=== PATIENT | female | born 1940 | race Caucasian/White ===

== ENCOUNTER 2016-08-13 18:50 | Emergency (ER) | payer OTHER ==
[~2016-08-13] VITALS: Ht 152.4 cm; Wt 91.5 kg
[~2016-08-13 18:50] MED LIST: ABILIFY DISCMEL15 MG PO; ABILIFY30 MG PO; ACETAMINOPHEN325 M1 PO; ACETAMINOPHEN500 MG PO; ALBUTEROL SULF8.5 GM IH; ALEVE220 MG PO; ASPIR 8181 M1 PO; ASPIR-LOW81 MG PO; ASPIRIN81 M1 PO; ATORVASTATIN CA20 MG PO; BENADRYL ALLERG25 MG PO; BENADRYL25 MG PO; BETHANECHOL CHL25 MG PO; CARDIZEM CD,CA360 MG PO; CARDIZEM LA360 MG PO; CELEXA10 MG PO; CELEXA20 MG PO; CELEXA40 MG PO; CIPRO250 MG PO; CIPRO500 MG PO; CITRATE OF MAG296 ML PO; COGENTIN0.5 MG PO; COGENTIN1 MG PO; COLACE100 MG PO; COMBIVENT200 INHALA IH; DAILY VALUE1 EACH PO; DILTIAZEM 24HR360 M1 PO; DILTIAZEM 24HR360 MG PO; DIPHEN25 M1 PO; DIPHENHYDRAMINE25 M2 PO; DOCUSATE SODIU100 MG PO; ESCITALOPRAM OX10 MG PO; FLUPHENAZINE HCL1 MG PO; FLUPHENAZINE HCL5 MG PO; GLIPIZIDE ER2.5 M1 PO; GLIPIZIDE ER2.5 MG PO; GLUCOPHAGE XR1000 MG PO; GLUCOPHAGE1000 MG PO; GLUCOTROL XL2.5 MG PO; INVEGA SUS156 MG/1 M IM; KEFLEX500 MG PO; LAMICTAL100 MG PO; LAMICTAL25 MG PO; LAMOTRIGINE100 MG PO; LEVOTHYROXINE88 MCG PO; LEVOXYL88 MCG PO; LEXAPRO20 MG PO; LIPITOR20 MG PO; LISINOPRIL10 MG PO; LISINOPRIL20 MG PO; LO-DOSE ASPIRIN81 M1 PO; LORAZEPAM1 MG PO; LOW DOSE ASPIRI81 M1 PO; METFORMIN HCL1000 M1 PO; METFORMIN HCL1000 MG PO; METOPROLOL TAR100 MG PO; METOPROLOL TART50 MG PO; MOTRIN800 MG PO; NAPROSYN500 MG PO; NASONEX17 GM NS; NOVOLOG PE100 UNITS/ SC; OMEPRAZOLE20 M2 PO; OMEPRAZOLE20 M3 PO; OXYCODONE HCL5 MG PO; PERCOCET 5/31 TABLET PO; PREDNISONE10 MG PO; PREDNISONE20 MG PO; PRILOSEC20 MG PO; PRINIVIL10 MG PO; PROAIR HFA8.5 GM IH; PROLIXIN DEC25 MG/ML IM; PROLIXIN2.5 MG PO; PROMETHAZINE-D120 ML PO; Proventil,Ventolin H IH; QUETIAPINE FUM400 MG PO; SEROQUEL XR300 MG PO; SEROQUEL XR400 MG PO; SEROQUEL100 MG PO; SEROQUEL300 MG PO; SEROQUEL400 MG PO; SEROQUEL50 MG PO; SIMVASTATIN40 MG PO; ST. JOSEPH ASPI81 MG PO; STOOL SOFTENER100 M1 PO; STOOL SOFTENER100 MG PO; SUDAFED PE PRE1 EAC3 PO; SYNTHROID50 MCG PO; SYNTHROID88 MCG PO; TAZTIA XT360 MG PO; THERAGRAN1 TABLET PO; TIAZAC360 MG PO; TRAMADOL HCL50 MG PO; TRAZODONE HCL50 MG PO; TYLENOL REGULA325 MG PO; Tums,OsCal PO; ULTRAM50 MG PO; URECHOLINE25 MG PO; VALACYCLOVIR500 MG PO; VALIUM2 MG PO; VENTOLIN HFA18 GM IH; VICKS BABYRUB S50 GM TP; VITAMIN D1000 INTUN PO; VITAMIN D1000 UNIT PO; VITAMIN D31000 UNI2 PO; VITAMIN D31000 UNIT PO; ZESTRIL,PRINIVI10 MG PO; ZOCOR40 MG PO; [UNRECOGNIZED DRUG - OTHER] PO; predniSONE PO
[2016-08-13 20:07] LABS: EOSINOPHIL (%) 1.3 % (0-5); EOSINOPHIL COUNT 0.1 K/uL (0-0.3); HEMATOCRIT 35.8 % (36.0-46.0); IMMATURE GRANULOCYTE (%) 0.3 % (0.0-0.7); IMMATURE GRANULOCYTE COUNT 0.2 K/uL; LYMPHOCYTE COUNT 2.1 K/uL (1.0-2.8); MCHC 34.1 G/DL (30.0-36.0); MCV 82.3 FL (83-99); MONOCYTE (%) 8.8 % (3-12); MONOCYTE COUNT 0.7 K/uL (0-0.8); NEUTROPHIL (%) 61.9 % (45-76); NEUTROPHIL COUNT 4.7 K/uL (1.8-6.4); PLATELET COUNT 308 K/uL (156-360); RBC DIS.WIDTH-CV 13.7 % (11.8-14.6); RBC DIS.WIDTH-SD 40.1 % (39-53); RED BLOOD COUNT 4.35 M/uL (3.80-5.20); WHITE BLOOD COUNT 7.5 K/uL (4.1-10.2)
[2016-08-13 20:29] LABS: TROP-I INTERPRETATION NEGATIVE; TROPONIN-I < 0.01 ng/mL (0.0-0.30)
[2016-08-13 20:30] LABS: CHLORIDE 89 mEq/L (99-109); POTASSIUM 3.3 mEq/L (3.7-5.4); SODIUM 130 mEq/L (136-147)
[2016-08-13 20:32] LABS: GLUCOSE 101 mg/dL (70-99)
[2016-08-13 20:33] LABS: ANION GAP 10 MEQ/L (2-14)
[2016-08-13 20:34] LABS: TOTAL BILIRUBIN 0.1 mg/dL (0.0-1.0)
[2016-08-13 20:36] LABS: ALKALINE PHOSPHATASE 118 IU/L (3-129); GFR ESTIMATE (CALCULATED) > 59 mL/min/
[2016-08-13 20:37] LABS: UREA NITROGEN (BUN) 8 mg/dL (9-23)
[2016-08-13] MEDS ORDERED: MEDROL DOSEPAK4 MG PO (21:22)
[2016-08-13] MEDS ORDERED: PROVENTIL HFA6.7 GM IH (21:22)
[2016-08-13 23:11] VITALS: BP 153/95
== END 2016-08-13 23:13 | disposition home or self-care (01) ==
LOC: EME 18:50
PROVIDERS: Emergency Medicine
DX: J44.1 Chronic obstructive pulmonary disease with (acute) exacerbation (principal); J20.9 Acute bronchitis, unspecified; E87.6 Hypokalemia; R11.2 Nausea with vomiting, unspecified; R19.7 Diarrhea, unspecified; R00.0 Tachycardia, unspecified; Z77.22 Contact with and (suspected) exposure to environmental tobacco smoke (acute) (chronic); J45.909 Unspecified asthma, uncomplicated; I10 Essential (primary) hypertension; E11.9 Type 2 diabetes mellitus without complications; E03.9 Hypothyroidism, unspecified; Z79.82 Long term (current) use of aspirin; Z87.891 Personal history of nicotine dependence
CPT/HCPCS: 71010; 80053; 83880; 84484; 85025; 93005; 94640; 99281; 99284; J7512

== ENCOUNTER 2016-08-16 14:33 | Inpatient (IN) | payer OTHER ==
[~2016-08-16] VITALS: Ht 160 cm; Wt 89.2 kg
[~2016-08-16 14:33] MED LIST changes: +MEDROL DOSEPAK4 MG PO; +PROVENTIL HFA6.7 GM IH
[2016-08-16 20:41] LABS: EOSINOPHIL (%) 0.4 % (0-5); HEMATOCRIT 36.9 % (36.0-46.0); IMMATURE GRANULOCYTE (%) 0.2 % (0.0-0.7); IMMATURE GRANULOCYTE COUNT 0.2 K/uL; LYMPHOCYTE COUNT 1.8 K/uL (1.0-2.8); MCH 28.5 PG (29.0-34.0); MCHC 33.9 G/DL (30.0-36.0); MCV 84.1 FL (83-99); MEAN PLAT.VOLUME 10.1 uM^3 (9.5-12.4); MONOCYTE (%) 8.3 % (3-12); MONOCYTE COUNT 0.7 K/uL (0-0.8); NEUTROPHIL (%) 69.3 % (45-76); NEUTROPHIL COUNT 5.8 K/uL (1.8-6.4); PLATELET COUNT 347 K/uL (156-360); RBC DIS.WIDTH-CV 13.9 % (11.8-14.6); RBC DIS.WIDTH-SD 41.3 % (39-53); RED BLOOD COUNT 4.39 M/uL (3.80-5.20); WHITE BLOOD COUNT 8.3 K/uL (4.1-10.2)
[2016-08-16 20:53] LABS: CHLORIDE 90 mEq/L (99-109); SODIUM 133 mEq/L (136-147)
[2016-08-16 20:55] LABS: GLUCOSE 143 mg/dL (70-99)
[2016-08-16 20:57] LABS: ANION GAP 9 MEQ/L (2-14)
[2016-08-16 20:58] LABS: TOTAL BILIRUBIN 0.3 mg/dL (0.0-1.0)
[2016-08-16 20:59] LABS: ALKALINE PHOSPHATASE 111 IU/L (3-129); GFR ESTIMATE (CALCULATED) > 59 mL/min/
[2016-08-16 21:00] LABS: UREA NITROGEN (BUN) 9 mg/dL (9-23)
[2016-08-16 21:05] LABS: TROP-I INTERPRETATION NEGATIVE; TROPONIN-I 0.01 ng/mL (0.0-0.30)
[2016-08-16] MEDS ORDERED: LEXAPRO20 MG PO (22:44)
[2016-08-16] MEDS ORDERED: ZESTORETIC 20-1 EAC1 PO (22:45)
[2016-08-16] MEDS ORDERED: VITAMIN D31000 UNI2 PO (22:46)
[2016-08-16] MEDS ORDERED: INVEGA SUS156 MG/1 M IM (22:49)
[2016-08-16] MEDS ORDERED: VICKS VAPORUB O50 GM TP (22:50)
[2016-08-16] MEDS ORDERED: VOLTAREN 1% GE100 GM TP (22:51)
[2016-08-16] MEDS ORDERED: LORAZEPAM0.5 MG PO (22:52)
[2016-08-17 02:20] LABS: ADD MIUA? YES; BILIRUBIN NEGATIVE; BLOOD NEGATIVE; COLOR STRAW ((YELLOW)); GLUCOSE (STRIP) NEGATIVE; KETONES NEGATIVE; LEUKOCYTES SMALL; NITRITE NEGATIVE; PROTEIN (STRIP) NEGATIVE; SPECIFIC GRAVITY 1.006 (1.000-1.030); UROBILINOGEN 0.2 MG/DL (0.2-1.0)
[2016-08-17 02:23] LABS: BACTERIA RARE /HPF; EPITHELIAL CELLS RARE /HPF; MUCUS NONE SEEN /LPF; RED BLOOD CELLS 0-5 /HPF (0-5); UCUL ADDED? NO; WHITE BLOOD CELLS 0-5 /HPF (0-5)
[2016-08-17 03:46] VITALS: BP 176/98
[2016-08-17 05:26] LABS: METH RESISTANT S AUREUS PCR NEGATIVE (NEGATIVE)
[2016-08-17 05:28] LABS: PROBE CHECK PASS; SPECIMEN PROCESSING CONTROL PASS
[2016-08-17 08:59] VITALS: BP 165/102
[2016-08-17 11:33] LABS: POINT-OF-CARE METER ID UU14174216
[2016-08-17 11:45] VITALS: BP 132/88
[2016-08-17 15:03] VITALS: BP 149/77
[2016-08-17 16:40] LABS: POINT-OF-CARE METER ID UU13113698
[2016-08-17 19:10] VITALS: BP 171/79
[2016-08-17 21:02] LABS: POINT-OF-CARE METER ID UU14174216
[2016-08-18 00:20] VITALS: BP 88/53
[2016-08-18 00:33] LABS: POINT-OF-CARE METER ID UU13113698
[2016-08-18 03:43] VITALS: BP 101/51
[2016-08-18 09:00] VITALS: BP 109/57
[2016-08-18 11:22] LABS: POINT-OF-CARE METER ID UU13113698
[2016-08-18 11:48] VITALS: BP 128/59
[2016-08-18 15:48] VITALS: BP 122/56
[2016-08-18 16:09] LABS: POINT-OF-CARE METER ID UU13113698
[2016-08-18 20:37] VITALS: BP 128/60
[2016-08-18 21:49] LABS: POINT-OF-CARE METER ID UU13113698
[2016-08-19] VITALS (7 sets, daily range): BP systolic 91–158; BP diastolic 49–68
[2016-08-19 08:22] LABS: POINT-OF-CARE METER ID UU13113698; POINT-OF-CARE USER ID ENVKC36
[2016-08-19 12:23] LABS: POINT-OF-CARE METER ID UU14174216
[2016-08-20 03:46] VITALS: BP 135/64
[2016-08-20 09:50] VITALS: BP 161/73
== END 2016-08-20 16:23 | disposition home or self-care (01) | DRG 605 ==
LOC: EME → EDBD 14:33 → EME 14:33 → 4EAST 23:52 → EDOF 23:52 → 4EAST 08-17 03:39
PROVIDERS: Emergency Medicine; Internal Medicine
DX: S50.01XA Contusion of right elbow, initial encounter (principal); I10 Essential (primary) hypertension; E66.01 Morbid (severe) obesity due to excess calories; F33.9 Major depressive disorder, recurrent, unspecified; F25.0 Schizoaffective disorder, bipolar type; J44.9 Chronic obstructive pulmonary disease, unspecified; E11.9 Type 2 diabetes mellitus without complications; W01.0XXA Fall on same level from slipping, tripping and stumbling without subsequent striking against object, initial encounter; E03.9 Hypothyroidism, unspecified; F41.9 Anxiety disorder, unspecified; Z68.34 Body mass index [BMI] 34.0-34.9, adult; Z87.891 Personal history of nicotine dependence
CPT/HCPCS: 73080; 73502; 73610; 80053; 81003; 82948; 84484; 85025; 87641; 93005; 94640; 94799; 99202; 99281; 99285; J0360; J1815

== ENCOUNTER 2016-08-27 10:58 | Inpatient (IN) | payer OTHER ==
[~2016-08-27] VITALS: Ht 147.3 cm; Wt 89.1 kg
[~2016-08-27 10:58] MED LIST changes: +LORAZEPAM0.5 MG PO; +VICKS VAPORUB O50 GM TP; +VOLTAREN 1% GE100 GM TP; +ZESTORETIC 20-1 EAC1 PO
[2016-08-27 11:39] LABS: HEMATOCRIT 34.3 % (36.0-46.0); MCH 27.8 PG (29.0-34.0); MCHC 34.4 G/DL (30.0-36.0); MCV 80.9 FL (83-99); PLATELET COUNT 288 K/uL (156-360); RBC DIS.WIDTH-SD 40.2 % (39-53); RED BLOOD COUNT 4.24 M/uL (3.80-5.20); WHITE BLOOD COUNT 7.2 K/uL (4.1-10.2)
[2016-08-27 11:51] LABS: CHLORIDE 88 mEq/L (99-109); POTASSIUM 3.4 mEq/L (3.7-5.4); SODIUM 126 mEq/L (136-147)
[2016-08-27 11:53] LABS: GLUCOSE 105 mg/dL (70-99)
[2016-08-27 11:54] LABS: ANION GAP 10 MEQ/L (2-14)
[2016-08-27 11:57] LABS: GFR ESTIMATE (CALCULATED) > 59 mL/min/
[2016-08-27 11:58] LABS: UREA NITROGEN (BUN) 8 mg/dL (9-23)
[2016-08-27 13:26] LABS: ADD MIUA? NO; BILIRUBIN NEGATIVE; BLOOD NEGATIVE; COLOR STRAW ((YELLOW)); GLUCOSE (STRIP) NEGATIVE; KETONES NEGATIVE; LEUKOCYTES NEGATIVE; NITRITE NEGATIVE; PROTEIN (STRIP) NEGATIVE; SPECIFIC GRAVITY 1.005 (1.000-1.030); UROBILINOGEN 0.2 MG/DL (0.2-1.0)
[2016-08-27] MEDS ORDERED: VITAMIN D31000 UNI2 PO (15:01)
[2016-08-27] MEDS ORDERED: GLIPIZIDE ER2.5 MG PO (15:02)
[2016-08-27] MEDS ORDERED: COLACE100 MG PO (15:02)
[2016-08-27] MEDS ORDERED: VENTOLIN HFA18 GM IH (15:03)
[2016-08-27] MEDS ORDERED: LEVO-T88 MCG PO (15:03)
[2016-08-27] MEDS ORDERED: GLUCOPHAGE1000 MG PO (15:05)
[2016-08-27] MEDS ORDERED: LAMICTAL100 MG PO (15:13)
[2016-08-27] MEDS ORDERED: TYLENOL REGULA325 MG PO (15:14)
[2016-08-27] MEDS ORDERED: BETHANECHOL CHL25 MG PO (15:15)
[2016-08-27] MEDS ORDERED: LEXAPRO20 MG PO (15:17)
[2016-08-27] MEDS ORDERED: ZESTORETIC 20-1 EAC1 PO (15:18)
[2016-08-27] MEDS ORDERED: SEROQUEL100 MG PO (15:19)
[2016-08-27] MEDS ORDERED: INVEGA SUS156 MG/1 M IM (15:20)
[2016-08-27] MEDS ORDERED: DAILY VALUE1 EACH PO (15:24)
[2016-08-27] MEDS ORDERED: VICKS VAPORUB O50 GM TP (15:24)
[2016-08-27] MEDS ORDERED: VOLTAREN 1% GE100 GM TP (15:25)
[2016-08-27] MEDS ORDERED: ATIVAN1 MG PO (15:25)
[2016-08-27] MEDS ORDERED: BLISTEX TP (15:27)
[2016-08-27] MEDS ORDERED: LORAZEPAM0.5 MG PO (15:29)
[2016-08-27] MEDS ORDERED: SEROQUEL400 MG PO (15:31)
[2016-08-28 07:09] LABS: ANION GAP 9 MEQ/L (2-14); CHLORIDE 91 MEQ/L (99-109); GFR ESTIMATE (CALCULATED) > 59 mL/min/; GLUCOSE 130 mg/dL (70-99); POTASSIUM 3.9 MEQ/L (3.7-5.4); SAMPLE HEMOLYSIS CHECK 0; SAMPLE ICTERIC CHECK 0; SAMPLE LIPEMIA CHECK 0; SODIUM 130 MEQ/L (136-147); UREA NITROGEN (BUN) 7 mg/dL (9-23)
[2016-08-28 08:28] VITALS: BP 138/70
[2016-08-28 16:23] VITALS: BP 119/79
[2016-08-29] VITALS (7 sets, daily range): BP systolic 91–143; BP diastolic 50–83
[2016-08-29 10:18] LABS: ANION GAP 12 MEQ/L (2-14); CHLORIDE 89 MEQ/L (99-109); GFR ESTIMATE (CALCULATED) 46 mL/min/; GLUCOSE 123 mg/dL (70-99); POTASSIUM 3.8 MEQ/L (3.7-5.4); SAMPLE HEMOLYSIS CHECK 0; SAMPLE ICTERIC CHECK 0; SAMPLE LIPEMIA CHECK 0; SODIUM 130 MEQ/L (136-147); UREA NITROGEN (BUN) 14 mg/dL (9-23)
[2016-08-29 19:12] LABS: TROP-I INTERPRETATION NEGATIVE; TROPONIN-I < 0.01 ng/mL (0.0-0.30)
[2016-08-29 19:14] LABS: ADD MIUA? YES; BILIRUBIN NEGATIVE; BLOOD NEGATIVE; COLOR YELLOW ((YELLOW)); GLUCOSE (STRIP) NEGATIVE; KETONES 5; LEUKOCYTES TRACE; NITRITE POSITIVE; PROTEIN (STRIP) NEGATIVE; SPECIFIC GRAVITY 1.008 (1.000-1.030); UROBILINOGEN 0.2 MG/DL (0.2-1.0)
[2016-08-29 19:25] LABS: BACTERIA 1+ /HPF; EPITHELIAL CELLS RARE /HPF; HYALINE CASTS 0-5 /LPF; MUCUS TRACE /LPF; RED BLOOD CELLS 0-5 /HPF (0-5); UCUL ADDED? NO; WHITE BLOOD CELLS 20-30 /HPF (0-5); WHITE BLOOD CELLS CLUMP OCC /HPF (0-5)
[2016-08-29 19:35] LABS: ALKALINE PHOSPHATASE 94 IU/L (3-129); ANION GAP 17 MEQ/L (2-14); CHLORIDE 89 MEQ/L (99-109); GFR ESTIMATE (CALCULATED) 42 mL/min/; GLUCOSE 174 mg/dL (70-99); INTER. NORMALIZED RATIO 1.2; MAGNESIUM 1.3 mg/dl (1.3-2.7); POTASSIUM 4.1 MEQ/L (3.7-5.4); SAMPLE HEMOLYSIS CHECK 0; SAMPLE ICTERIC CHECK 0; SAMPLE LIPEMIA CHECK 0; SODIUM 129 MEQ/L (136-147); TOTAL BILIRUBIN 0.4 MG/DL (0.0-1.0); UREA NITROGEN (BUN) 14 mg/dL (9-23)
[2016-08-29 19:48] LABS: EOSINOPHIL (%) 0.6 % (0-5); EOSINOPHIL COUNT 0.1 K/uL (0-0.3); HEMATOCRIT 38.5 % (36.0-46.0); IMMATURE GRANULOCYTE (%) 0.7 % (0.0-0.7); IMMATURE GRANULOCYTE COUNT 0.1 K/uL; LYMPHOCYTE COUNT 3.1 K/uL (1.0-2.8); MCH 27.2 PG (29.0-34.0); MCHC 31.7 G/DL (30.0-36.0); MEAN PLAT.VOLUME 10.1 uM^3 (9.5-12.4); MONOCYTE (%) 5.7 % (3-12); MONOCYTE COUNT 0.8 K/uL (0-0.8); NEUTROPHIL (%) 69.3 % (45-76); NEUTROPHIL COUNT 9.2 K/uL (1.8-6.4); PLATELET COUNT 371 K/uL (156-360); RBC DIS.WIDTH-CV 14.7 % (11.8-14.6); RBC DIS.WIDTH-SD 45.5 % (39-53); RED BLOOD COUNT 4.49 M/uL (3.80-5.20)
[2016-08-29 19:49] LABS: MCV 85.7 FL (83-99); WHITE BLOOD COUNT 13.3 K/uL (4.1-10.2)
[2016-08-29 20:44] LABS: BASE EXCESS 5.7 mEq/L (-3 to +3); BICARBONATE 31.6 mEq/L (22-26); CARBOXY HGB 1.7 % (0-5); COMMENTS - BLOOD GASES C+; DEVICE PB840; FI02 70 %; MECHANICAL RATE 12 resp/min; METHEMOGLOBIN 1.2 % (0-1.5); MODE AC; PCO2 51 mm Hg (35-45); PO2 167 mm Hg (80-100); SITE LB; TOTAL RESP RATE 12 resp/min
[2016-08-29 20:45] LABS: PEEP 5 CM/H20; TIDAL VOLUME 440 ML
[2016-08-29 20:58] LABS: METH RESISTANT S AUREUS PCR NEGATIVE (NEGATIVE)
[2016-08-29 21:04] LABS: PROBE CHECK PASS; SPECIMEN PROCESSING CONTROL PASS
[2016-08-29 22:06] LABS: UR CREATININE CONCENTRATION 99.6 MG/DL
[2016-08-29 22:44] LABS: CREATINE KINASE 466 IU/L (1-294)
[2016-08-30] VITALS (18 sets, daily range): BP systolic 96–170; BP diastolic 44–87
[2016-08-30 00:19] LABS: BASE EXCESS 3.4 mEq/L (-3 to +3); BICARBONATE 29.5 mEq/L (22-26); CARBOXY HGB 1.4 % (0-5); COMMENTS - BLOOD GASES C+; DEVICE PB840; FI02 50 %; MECHANICAL RATE 10 resp/min; METHEMOGLOBIN 1.5 % (0-1.5); MODE SIMV; PCO2 51 mm Hg (35-45); PEEP 5 CM/H20; PO2 106 mm Hg (80-100); SITE LR; TIDAL VOLUME 440 ML; TOTAL RESP RATE 15 resp/min; pH 7.37 (7.35-7.45)
[2016-08-30 00:41] LABS: CREATINE KINASE 432 IU/L (1-294); TOTAL CK 432 IU/L (1-294)
[2016-08-30 00:48] LABS: TROP-I INTERPRETATION NEGATIVE; TROPONIN-I 0.02 ng/mL (0.0-0.30)
[2016-08-30 01:16] LABS: POINT-OF-CARE METER ID UU14162636
[2016-08-30 02:39] LABS: BASE EXCESS 4.8 mEq/L (-3 to +3); BICARBONATE 31.2 mEq/L (22-26); CARBOXY HGB 1.3 % (0-5); METHEMOGLOBIN 1.6 % (0-1.5); PCO2 54 mm Hg (35-45); PO2 86 mm Hg (80-100); pH 7.37 (7.35-7.45)
[2016-08-30 02:40] LABS: COMMENTS - BLOOD GASES C+; DEVICE PB840; FI02 50 %; MODE SPON; PEEP 5 CM/H20; PRES. SUPPORT 10 CM/H2O; SITE LR; TOTAL RESP RATE 11 resp/min
[2016-08-30 06:01] LABS: EOSINOPHIL (%) 0.6 % (0-5); HEMATOCRIT 31.6 % (36.0-46.0); IMMATURE GRANULOCYTE (%) 0.3 % (0.0-0.7); LYMPHOCYTE COUNT 1.3 K/uL (1.0-2.8); MCH 27.9 PG (29.0-34.0); MCHC 32.3 G/DL (30.0-36.0); MCV 86.3 FL (83-99); MEAN PLAT.VOLUME 10.1 uM^3 (9.5-12.4); MONOCYTE COUNT 0.6 K/uL (0-0.8); NEUTROPHIL (%) 72.7 % (45-76); NEUTROPHIL COUNT 5.2 K/uL (1.8-6.4); PLATELET COUNT 270 K/uL (156-360); RBC DIS.WIDTH-CV 14.8 % (11.8-14.6); RBC DIS.WIDTH-SD 46.6 % (39-53); RED BLOOD COUNT 3.66 M/uL (3.80-5.20)
[2016-08-30 06:02] LABS: WHITE BLOOD COUNT 7.1 K/uL (4.1-10.2)
[2016-08-30 06:11] LABS: POINT-OF-CARE METER ID UU13113731
[2016-08-30 06:28] LABS: ANION GAP 9 MEQ/L (2-14); CHLORIDE 95 MEQ/L (99-109); GFR ESTIMATE (CALCULATED) 57 mL/min/; GLUCOSE 109 mg/dL (70-99); MAGNESIUM 1.3 mg/dl (1.3-2.7); POTASSIUM 3.9 MEQ/L (3.7-5.4); SAMPLE HEMOLYSIS CHECK 0; SAMPLE ICTERIC CHECK 0; SAMPLE LIPEMIA CHECK 0; SODIUM 133 MEQ/L (136-147); UREA NITROGEN (BUN) 19 mg/dL (9-23)
[2016-08-30 06:30] LABS: TROP-I INTERPRETATION NEGATIVE; TROPONIN-I 0.01 ng/mL (0.0-0.30)
[2016-08-30 06:48] LABS: CK-MB 3.2 ng/mL (0.0-4.9)
[2016-08-30 08:05] LABS: CREATINE KINASE 303 IU/L (1-294); TOTAL CK 303 IU/L (1-294)
[2016-08-30 11:55] LABS: POINT-OF-CARE METER ID UU13113731
[2016-08-30 12:28] LABS: TOTAL CK 306 IU/L (1-294)
[2016-08-30 12:29] LABS: TROP-I INTERPRETATION NEGATIVE; TROPONIN-I < 0.01 ng/mL (0.0-0.30)
[2016-08-30 12:54] LABS: CK-MB 3.3 ng/mL (0.0-4.9); CREATINE KINASE 306 IU/L (1-294)
[2016-08-30 17:13] LABS: POINT-OF-CARE METER ID UU13113748
[2016-08-30 19:11] LABS: TROP-I INTERPRETATION NEGATIVE; TROPONIN-I < 0.01 ng/mL (0.0-0.30)
[2016-08-30 19:13] LABS: CK-MB 2.6 ng/mL (0.0-4.9)
[2016-08-30 19:31] LABS: CREATINE KINASE 285 IU/L (1-294); TOTAL CK 285 IU/L (1-294)
[2016-08-31 06:12] LABS: EOSINOPHIL (%) 0.5 % (0-5); HEMATOCRIT 32.2 % (36.0-46.0); IMMATURE GRANULOCYTE (%) 0.2 % (0.0-0.7); LYMPHOCYTE COUNT 1.3 K/uL (1.0-2.8); MCH 28.1 PG (29.0-34.0); MCHC 32.3 G/DL (30.0-36.0); MEAN PLAT.VOLUME 9.9 uM^3 (9.5-12.4); MONOCYTE (%) 8.5 % (3-12); MONOCYTE COUNT 0.7 K/uL (0-0.8); NEUTROPHIL (%) 75.2 % (45-76); NEUTROPHIL COUNT 6.6 K/uL (1.8-6.4); PLATELET COUNT 256 K/uL (156-360); RBC DIS.WIDTH-CV 14.9 % (11.8-14.6); RBC DIS.WIDTH-SD 46.9 % (39-53); WHITE BLOOD COUNT 8.8 K/uL (4.1-10.2)
[2016-08-31 06:40] LABS: ANION GAP 7 MEQ/L (2-14); CHLORIDE 94 MEQ/L (99-109); GFR ESTIMATE (CALCULATED) > 59 mL/min/; GLUCOSE 140 mg/dL (70-99); MAGNESIUM 1.2 mg/dl (1.3-2.7); POTASSIUM 3.6 MEQ/L (3.7-5.4); SAMPLE HEMOLYSIS CHECK 0; SAMPLE ICTERIC CHECK 0; SAMPLE LIPEMIA CHECK 0; SODIUM 132 MEQ/L (136-147); UREA NITROGEN (BUN) 9 mg/dL (9-23)
[2016-08-31 07:35] VITALS: BP 200/90
[2016-08-31 09:03] VITALS: BP 144/70
[2016-08-31 15:20] VITALS: BP 186/86
[2016-08-31 23:10] VITALS: BP 177/76
[2016-09-01 06:55] LABS: EOSINOPHIL (%) 0.5 % (0-5); HEMATOCRIT 34.1 % (36.0-46.0); IMMATURE GRANULOCYTE (%) 0.1 % (0.0-0.7); LYMPHOCYTE COUNT 1.5 K/uL (1.0-2.8); MCH 28.2 PG (29.0-34.0); MCHC 32.6 G/DL (30.0-36.0); MCV 86.5 FL (83-99); MEAN PLAT.VOLUME 10.5 uM^3 (9.5-12.4); MONOCYTE (%) 8.2 % (3-12); MONOCYTE COUNT 0.7 K/uL (0-0.8); NEUTROPHIL (%) 73.1 % (45-76); NEUTROPHIL COUNT 6.2 K/uL (1.8-6.4); PLATELET COUNT 284 K/uL (156-360); RBC DIS.WIDTH-CV 14.8 % (11.8-14.6); RED BLOOD COUNT 3.94 M/uL (3.80-5.20); WHITE BLOOD COUNT 8.5 K/uL (4.1-10.2)
[2016-09-01 07:22] VITALS: BP 179/82
[2016-09-01 07:26] LABS: ALKALINE PHOSPHATASE 77 IU/L (3-129); ANION GAP 9 MEQ/L (2-14); CHLORIDE 91 MEQ/L (99-109); GFR ESTIMATE (CALCULATED) > 59 mL/min/; GLUCOSE 139 mg/dL (70-99); POTASSIUM 3.7 MEQ/L (3.7-5.4); SAMPLE HEMOLYSIS CHECK 0; SAMPLE ICTERIC CHECK 0; SAMPLE LIPEMIA CHECK 0; SODIUM 134 MEQ/L (136-147); TOTAL BILIRUBIN 0.5 MG/DL (0.0-1.0); UREA NITROGEN (BUN) 7 mg/dL (9-23)
[2016-09-01 14:41] VITALS: BP 199/94
[2016-09-01 16:28] LABS: POINT-OF-CARE METER ID UU13113725
[2016-09-01 22:25] VITALS: BP 133/66
[2016-09-02 07:27] LABS: EOSINOPHIL (%) 0.4 % (0-5); IMMATURE GRANULOCYTE (%) 0.1 % (0.0-0.7); LYMPHOCYTE COUNT 1.4 K/uL (1.0-2.8); MCH 26.9 PG (29.0-34.0); MCHC 31.4 G/DL (30.0-36.0); MCV 85.6 FL (83-99); MONOCYTE (%) 9.9 % (3-12); MONOCYTE COUNT 0.7 K/uL (0-0.8); NEUTROPHIL (%) 69.2 % (45-76); NEUTROPHIL COUNT 4.7 K/uL (1.8-6.4); PLATELET COUNT 345 K/uL (156-360); RBC DIS.WIDTH-CV 14.6 % (11.8-14.6); RBC DIS.WIDTH-SD 45.8 % (39-53); RED BLOOD COUNT 4.09 M/uL (3.80-5.20); WHITE BLOOD COUNT 6.9 K/uL (4.1-10.2)
[2016-09-02 07:52] LABS: ANION GAP 10 MEQ/L (2-14); CHLORIDE 91 MEQ/L (99-109); GFR ESTIMATE (CALCULATED) > 59 mL/min/; GLUCOSE 136 mg/dL (70-99); POTASSIUM 3.6 MEQ/L (3.7-5.4); SAMPLE HEMOLYSIS CHECK 0; SAMPLE ICTERIC CHECK 0; SAMPLE LIPEMIA CHECK 0; SODIUM 133 MEQ/L (136-147); UREA NITROGEN (BUN) 18 mg/dL (9-23)
[2016-09-02 07:53] LABS: MAGNESIUM 1.2 mg/dl (1.3-2.7)
[2016-09-02 08:34] VITALS: BP 135/87
[2016-09-02 16:10] VITALS: BP 144/81
[2016-09-02 16:22] LABS: POINT-OF-CARE METER ID UU13113725
== END 2016-09-02 16:55 | DRG 640 ==
LOC: EME 10:58 → 4WEST 15:40 → 5EAST 15:40 → 4WEST 08-29 18:46 → 5EAST 08-30 19:29
PROVIDERS: Internal Medicine; Internal Medicine Nephrology; Physician Assistant Medical
DX: E87.1 Hypo-osmolality and hyponatremia (principal); G93.41 Metabolic encephalopathy; J96.00 Acute respiratory failure, unspecified whether with hypoxia or hypercapnia; J44.1 Chronic obstructive pulmonary disease with (acute) exacerbation; F05 Delirium due to known physiological condition; N39.0 Urinary tract infection, site not specified; F25.0 Schizoaffective disorder, bipolar type; I10 Essential (primary) hypertension; T43.505A Adverse effect of unspecified antipsychotics and neuroleptics, initial encounter; T50.2X5A Adverse effect of carbonic-anhydrase inhibitors, benzothiadiazides and other diuretics, initial encounter; T45.3X5A Adverse effect of enzymes, initial encounter; T43.205A Adverse effect of unspecified antidepressants, initial encounter; K57.30 Diverticulosis of large intestine without perforation or abscess without bleeding; D18.03 Hemangioma of intra-abdominal structures; E11.9 Type 2 diabetes mellitus without complications; R55 Syncope and collapse; E03.9 Hypothyroidism, unspecified; Z79.84 Long term (current) use of oral hypoglycemic drugs; F32.9 Major depressive disorder, single episode, unspecified; Z91.14 Patient's other noncompliance with medication regimen; Z87.891 Personal history of nicotine dependence; S50.01XD Contusion of right elbow, subsequent encounter; W18.30XD Fall on same level, unspecified, subsequent encounter; Z68.41 Body mass index [BMI] 40.0-44.9, adult; E66.9 Obesity, unspecified
CPT/HCPCS: 36600; 70450; 71010; 71020; 74176; 80048; 80053; 81003; 82550; 82550 91; 82553; 82570; 82803; 82948; 83605; 83735; 84100; 84156; 84300; 84439; 84443; 84484; 85025; 85027; 85610; 85730; 87040; 87070; 87077; 87086; 87186; 87205; 87641; 92950; 93005; 94002; 94640; 94640 76; 94799; 95819; 99202; 99281; 99285; J0360; J0696; J1650; J1815; J2543; J2704; J3010; J7030; J7050; J7120; S0028

== ENCOUNTER 2016-09-02 15:55 | Inpatient (IN) | payer OTHER ==
[~2016-09-02] VITALS: Ht 147.3 cm; Wt 84.3 kg
[~2016-09-02 15:55] MED LIST changes: +ATIVAN1 MG PO; +BLISTEX TP; +LEVO-T88 MCG PO
[2016-09-02 17:27] VITALS: BP 109/55
[2016-09-03 06:15] LABS: POINT-OF-CARE METER ID UU13113830; POINT-OF-CARE USER ID BHSSMG
[2016-09-03 11:34] VITALS: BP 117/56
[2016-09-03 15:48] VITALS: BP 142/67
[2016-09-04 07:57] VITALS: BP 118/59
[2016-09-04 10:34] LABS: ANION GAP 13 MEQ/L (2-14); CHLORIDE 92 MEQ/L (99-109); GFR ESTIMATE (CALCULATED) > 59 mL/min/; POTASSIUM 3.2 MEQ/L (3.7-5.4); SAMPLE HEMOLYSIS CHECK 0; SAMPLE ICTERIC CHECK 0; SAMPLE LIPEMIA CHECK 0; SODIUM 131 MEQ/L (136-147); UREA NITROGEN (BUN) 21 mg/dL (9-23)
[2016-09-04 10:36] LABS: GLUCOSE 94 mg/dL (70-99)
[2016-09-04 15:55] VITALS: BP 129/64
[2016-09-05 07:52] VITALS: BP 164/71
[2016-09-05 10:38] LABS: ANION GAP 12 MEQ/L (2-14); CHLORIDE 95 MEQ/L (99-109); GFR ESTIMATE (CALCULATED) > 59 mL/min/; GLUCOSE 121 mg/dL (70-99); SAMPLE HEMOLYSIS CHECK 0; SAMPLE ICTERIC CHECK 0; SAMPLE LIPEMIA CHECK 0; SODIUM 133 MEQ/L (136-147); UREA NITROGEN (BUN) 27 mg/dL (9-23)
[2016-09-05 10:40] LABS: POTASSIUM 4.1 MEQ/L (3.7-5.4)
[2016-09-05 15:32] VITALS: BP 134/82
[2016-09-06 08:00] VITALS: BP 152/75
[2016-09-06 09:34] LABS: CHLORIDE 97 mEq/L (99-109); POTASSIUM 4.1 mEq/L (3.7-5.4); SODIUM 135 mEq/L (136-147)
[2016-09-06 09:35] LABS: GLUCOSE 141 mg/dL (70-99)
[2016-09-06 09:37] LABS: ANION GAP 12 MEQ/L (2-14)
[2016-09-06 09:39] LABS: GFR ESTIMATE (CALCULATED) 46 mL/min/
[2016-09-06 09:40] LABS: UREA NITROGEN (BUN) 33 mg/dL (9-23)
[2016-09-06 11:45] VITALS: BP 142/64
[2016-09-06 15:37] VITALS: BP 164/68
[2016-09-07 07:55] VITALS: BP 151/70
[2016-09-07 15:57] VITALS: BP 147/83
[2016-09-08 07:58] VITALS: BP 167/74
== END 2016-09-08 10:42 | disposition home or self-care (01) | DRG 885 ==
LOC: 1WEST 15:55
PROVIDERS: Nurse Practitioner Family; Psychiatry & Neurology Psychiatry
DX: F25.9 Schizoaffective disorder, unspecified (principal); E87.1 Hypo-osmolality and hyponatremia; Z68.41 Body mass index [BMI] 40.0-44.9, adult; R33.9 Retention of urine, unspecified; I10 Essential (primary) hypertension; E11.9 Type 2 diabetes mellitus without complications; E03.9 Hypothyroidism, unspecified; J44.9 Chronic obstructive pulmonary disease, unspecified; E66.9 Obesity, unspecified; Z88.2 Allergy status to sulfonamides
CPT/HCPCS: 80048; 82948; 94640; 94640 76; 94799; 97150 GO; 97166 GO; 99202

== ENCOUNTER 2016-10-16 21:40 | Emergency (ER) | payer OTHER ==
[~2016-10-16] VITALS: Ht 152.4 cm; Wt 85.3 kg
[2016-10-16 23:18] LABS: BASOPHIL COUNT 0.1 K/uL (0-0.1); EOSINOPHIL (%) 1.4 % (0-5); EOSINOPHIL COUNT 0.1 K/uL (0-0.3); HEMATOCRIT 32.6 % (36.0-46.0); IMMATURE GRANULOCYTE (%) 0.6 % (0.0-0.7); IMMATURE GRANULOCYTE COUNT 0.1 K/uL; INSTRUMENT ABS NEUTROPHIL CT 6.4 K/uL; LYMPHOCYTE COUNT 1.7 K/uL (1.0-2.8); MCH 27.5 PG (29.0-34.0); MCHC 33.1 G/DL (30.0-36.0); MEAN PLAT.VOLUME 9.9 uM^3 (9.5-12.4); MONOCYTE (%) 7.6 % (3-12); MONOCYTE COUNT 0.7 K/uL (0-0.8); NEUTROPHIL (%) 70.9 % (45-76); NEUTROPHIL COUNT 6.4 K/uL (1.8-6.4); PLATELET COUNT 329 K/uL (156-360); RBC DIS.WIDTH-CV 12.7 % (11.8-14.6); RBC DIS.WIDTH-SD 38.8 % (39-53); RED BLOOD COUNT 3.93 M/uL (3.80-5.20); WHITE BLOOD COUNT 9.1 K/uL (4.1-10.2)
[2016-10-16 23:31] LABS: CHLORIDE 85 mEq/L (99-109); POTASSIUM 3.1 mEq/L (3.7-5.4); SODIUM 125 mEq/L (136-147)
[2016-10-16 23:33] LABS: GLUCOSE 134 mg/dL (70-99)
[2016-10-16 23:34] LABS: ANION GAP 14 MEQ/L (2-14)
[2016-10-16 23:36] LABS: SERUM ETHYL ALCOHOL < 10 mg/dL
[2016-10-16 23:37] LABS: GFR ESTIMATE (CALCULATED) > 59 mL/min/; UREA NITROGEN (BUN) 11 mg/dL (9-23)
[2016-10-17 00:15] LABS: AMPHETAMINE NEGATIVE (500 ng/mL); BARBITURATES NEGATIVE (200 ng/mL); BENZODIAZEPINES PRESUMPTIVE POSITIVE (150 ng/mL); COCAINE NEGATIVE (150 ng/mL); INTERNAL CONTROLS VALID? YES; METHADONE NEGATIVE (200 ng/mL); METHAMPHETAMINE NEGATIVE (500 ng/mL); OPIATES (MORPHINE) NEGATIVE (100 ng/mL); OXYCODONE NEGATIVE (100 ng/mL); PHENCYCLIDINE NEGATIVE (25 ng/mL); PROPOXYPHENE NEGATIVE (300 ng/mL); THC CANNABINOIDS NEGATIVE (50 ng/mL); TRICYCLIC ANTIDEPRESSANTS PRESUMPTIVE POSITIVE (300 ng/mL)
[2016-10-17 00:16] LABS: ADD MEDTOX COMMENT Y
[2016-10-17] MEDS ORDERED: LORAZEPAM0.5 MG PO (01:01)
[2016-10-17] MEDS ORDERED: LORAZEPAM1 MG PO (01:02)
[2016-10-17 04:00] LABS: BENZODIAZEPINES QUANT VALUE 0 NG/ML
[2016-10-17 04:10] LABS: BENZODIAZEPINES, URINE SCREEN Negative (200 ng/mL)
[2016-10-17 08:05] VITALS: BP 112/68
== END 2016-10-17 08:06 | disposition home or self-care (01) ==
LOC: EME → EDBD 21:40 → EME 10-17 08:06
PROVIDERS: Emergency Medicine
DX: F32.9 Major depressive disorder, single episode, unspecified (principal); R45.851 Suicidal ideations; F25.1 Schizoaffective disorder, depressive type; I10 Essential (primary) hypertension; E03.9 Hypothyroidism, unspecified; E11.9 Type 2 diabetes mellitus without complications; J45.909 Unspecified asthma, uncomplicated; J44.9 Chronic obstructive pulmonary disease, unspecified; Z87.891 Personal history of nicotine dependence
CPT/HCPCS: 80048; 84999; 85025; 99281; 99284; G0480

== ENCOUNTER 2016-10-20 14:11 | Emergency (ER) | payer OTHER ==
[~2016-10-20] VITALS: Ht 152.4 cm; Wt 81.0 kg
[2016-10-20 16:56] LABS: ADD MIUA? YES; BILIRUBIN NEGATIVE; BLOOD NEGATIVE; COLOR YELLOW ((YELLOW)); GLUCOSE (STRIP) NEGATIVE; KETONES NEGATIVE; LEUKOCYTES LARGE; NITRITE POSITIVE; PROTEIN (STRIP) NEGATIVE; SPECIFIC GRAVITY 1.003 (1.000-1.030); UROBILINOGEN 0.2 MG/DL (0.2-1.0)
[2016-10-20 17:10] LABS: EPITHELIAL CELLS RARE /HPF; MUCUS TRACE /LPF; RED BLOOD CELLS 0-5 /HPF (0-5)
[2016-10-20 17:12] LABS: BACTERIA 3+ /HPF; UCUL ADDED? YES
[2016-10-20] MEDS ORDERED: VANTIN100 MG PO (17:13)
[2016-10-20 17:23] VITALS: BP 195/82
== END 2016-10-20 17:23 | disposition home or self-care (01) ==
LOC: EME 14:11
PROVIDERS: Emergency Medicine
DX: N39.0 Urinary tract infection, site not specified (principal); F32.9 Major depressive disorder, single episode, unspecified; F25.1 Schizoaffective disorder, depressive type; F60.7 Dependent personality disorder; I10 Essential (primary) hypertension; E11.9 Type 2 diabetes mellitus without complications; E03.9 Hypothyroidism, unspecified; J44.9 Chronic obstructive pulmonary disease, unspecified; J45.909 Unspecified asthma, uncomplicated; Z87.891 Personal history of nicotine dependence
CPT/HCPCS: 81003; 87077; 87086; 87186; 90839; 99281; 99283

== ENCOUNTER 2016-10-23 13:59 | Emergency (ER) | payer OTHER ==
[~2016-10-23] VITALS: Ht 167.6 cm; Wt 96.4 kg
[~2016-10-23 13:59] MED LIST changes: +VANTIN100 MG PO
[2016-10-23 16:46] LABS: POINT-OF-CARE METER ID UU13113800
[2016-10-23 16:50] LABS: HEMATOCRIT 34.5 % (36.0-46.0); MCH 27.5 PG (29.0-34.0); MCHC 33.3 G/DL (30.0-36.0); MCV 82.5 FL (83-99); MEAN PLAT.VOLUME 9.6 uM^3 (9.5-12.4); PLATELET COUNT 354 K/uL (156-360); RBC DIS.WIDTH-SD 39.5 % (39-53); RED BLOOD COUNT 4.18 M/uL (3.80-5.20); WHITE BLOOD COUNT 7.9 K/uL (4.1-10.2)
[2016-10-23 16:58] LABS: CHLORIDE 88 mEq/L (99-109); POTASSIUM 3.5 mEq/L (3.7-5.4); SODIUM 125 mEq/L (136-147)
[2016-10-23 17:00] LABS: GLUCOSE 114 mg/dL (70-99)
[2016-10-23 17:01] LABS: ANION GAP 10 MEQ/L (2-14)
[2016-10-23 17:02] LABS: TOTAL BILIRUBIN 0.3 mg/dL (0.0-1.0)
[2016-10-23 17:03] LABS: ALKALINE PHOSPHATASE 119 IU/L (3-129)
[2016-10-23 17:04] LABS: GFR ESTIMATE (CALCULATED) > 59 mL/min/
[2016-10-23 17:05] LABS: UREA NITROGEN (BUN) 8 mg/dL (9-23)
[2016-10-23 17:27] LABS: LIPASE 13 U/L (1.0-51.0)
[2016-10-23] MEDS ORDERED: KEFLEX500 MG PO (17:55)
[2016-10-23 18:38] VITALS: BP 203/87
== END 2016-10-23 18:42 | disposition home or self-care (01) ==
LOC: EME 13:59
PROVIDERS: Nurse Practitioner Family
DX: N39.0 Urinary tract infection, site not specified (principal); E87.1 Hypo-osmolality and hyponatremia; B96.20 Unspecified Escherichia coli [E. coli] as the cause of diseases classified elsewhere; E11.9 Type 2 diabetes mellitus without complications; E78.5 Hyperlipidemia, unspecified; I10 Essential (primary) hypertension; Z85.3 Personal history of malignant neoplasm of breast; Z85.038 Personal history of other malignant neoplasm of large intestine; Z88.2 Allergy status to sulfonamides; Z88.8 Allergy status to other drugs, medicaments and biological substances; Z87.891 Personal history of nicotine dependence
CPT/HCPCS: 80053; 81003; 82948; 83690; 85027; 99281; 99285; J7030

== ENCOUNTER 2017-03-13 18:25 | Emergency (ER) | payer OTHER ==
[~2017-03-13] VITALS: Ht 152.4 cm; Wt 85.5 kg
[2017-03-13 20:06] LABS: EOSINOPHIL (%) 0.7 % (0-5); EOSINOPHIL COUNT 0.1 K/uL (0-0.3); HEMATOCRIT 34.8 % (36.0-46.0); IMMATURE GRANULOCYTE (%) 0.4 % (0.0-0.7); INSTRUMENT ABS NEUTROPHIL CT 5.1 K/uL; LYMPHOCYTE COUNT 1.4 K/uL (1.0-2.8); MCH 26.5 PG (29.0-34.0); MCHC 32.2 G/DL (30.0-36.0); MCV 82.5 FL (83-99); MEAN PLAT.VOLUME 10.4 uM^3 (9.5-12.4); MONOCYTE (%) 7.6 % (3-12); MONOCYTE COUNT 0.5 K/uL (0-0.8); NEUTROPHIL (%) 71.7 % (45-76); NEUTROPHIL COUNT 5.1 K/uL (1.8-6.4); PLATELET COUNT 290 K/uL (156-360); RBC DIS.WIDTH-CV 13.6 % (11.8-14.6); RBC DIS.WIDTH-SD 41.1 % (39-53); RED BLOOD COUNT 4.22 M/uL (3.80-5.20); WHITE BLOOD COUNT 7.2 K/uL (4.1-10.2)
[2017-03-13 20:14] LABS: PROTHROMBIN TIME 10.6 SEC (10.2-12.9)
[2017-03-13 20:16] LABS: PTT 27.8 SEC (25-37)
[2017-03-13 20:17] LABS: CHLORIDE 91 mEq/L (99-109); POTASSIUM 3.8 mEq/L (3.7-5.4); SODIUM 130 mEq/L (136-147)
[2017-03-13 20:18] LABS: GLUCOSE 109 mg/dL (70-99)
[2017-03-13 20:20] LABS: ANION GAP 13 MEQ/L (2-14)
[2017-03-13 20:22] LABS: GFR ESTIMATE (CALCULATED) > 59 mL/min/
[2017-03-13 20:23] LABS: UREA NITROGEN (BUN) 9 mg/dL (9-23)
[2017-03-13 20:26] LABS: TROP-I INTERPRETATION NEGATIVE; TROPONIN-I 0.01 ng/mL (0.0-0.30)
[2017-03-13] MEDS ORDERED: VENTOLIN HFA18 GM IH (23:41)
[2017-03-13] MEDS ORDERED: LEXAPRO20 MG PO (23:42)
[2017-03-13 23:48] LABS: TROP-I INTERPRETATION NEGATIVE; TROPONIN-I 0.02 ng/mL (0.0-0.30)
[2017-03-14 00:33] VITALS: BP 168/94
== END 2017-03-14 00:33 | disposition home or self-care (01) ==
LOC: EME 18:25
PROVIDERS: Emergency Medicine
DX: R07.9 Chest pain, unspecified (principal); E11.9 Type 2 diabetes mellitus without complications; E78.5 Hyperlipidemia, unspecified; I10 Essential (primary) hypertension; J44.9 Chronic obstructive pulmonary disease, unspecified; K21.9 Gastro-esophageal reflux disease without esophagitis; Z85.038 Personal history of other malignant neoplasm of large intestine; Z85.3 Personal history of malignant neoplasm of breast; Z87.891 Personal history of nicotine dependence; Z79.84 Long term (current) use of oral hypoglycemic drugs
CPT/HCPCS: 71010; 80048; 84484; 85025; 85610; 85730; 93005; 99281; 99285; J7030

== ENCOUNTER 2017-11-29 09:12 | Inpatient (IN) | payer OTHER ==
[~2017-11-29] VITALS: Ht 152.4 cm; Wt 81.6 kg
[2017-11-29 11:31] LABS: BASOPHIL (%) 0.7 % (0-1); BASOPHIL COUNT 0.1 K/uL (0-0.1); EOSINOPHIL (%) 2.2 % (0-5); EOSINOPHIL COUNT 0.2 K/uL (0-0.3); HEMATOCRIT 32.8 % (36.0-46.0); HEMOGLOBIN 11.2 G/DL (11.9-15.5); IMMATURE GRANULOCYTE (%) 0.4 % (0.0-0.7); LYMPHOCYTE (%) 27.8 % (15-42); LYMPHOCYTE COUNT 1.9 K/uL (1.0-2.8); MCH 27.4 PG (29.0-34.0); MCHC 34.1 G/DL (30.0-36.0); MCV 80.2 FL (83-99); MONOCYTE (%) 7.4 % (3-12); MONOCYTE COUNT 0.5 K/uL (0-0.8); NEUTROPHIL (%) 61.5 % (45-76); NEUTROPHIL COUNT 4.2 K/uL (1.8-6.4); RBC DIS.WIDTH-CV 14.1 % (11.8-14.6); RBC DIS.WIDTH-SD 41.2 % (39-53); RED BLOOD COUNT 4.09 M/uL (3.80-5.20); WHITE BLOOD COUNT 6.9 K/uL (4.1-10.2)
[2017-11-29 12:06] LABS: PLAT.SUFFICIENCY ADEQUATE; PLATELET COUNT 227 K/uL (156-360)
[2017-11-29 13:36] LABS: ALKALINE PHOSPHATASE 53 IU/L (3-129); ALT (GPT) 14 IU/L (3-49); AST (GOT) 21 IU/L (2-34); CHLORIDE 86 MEQ/L (99-109); CREATININE 0.6 MG/DL (0.6-1.3); GFR ESTIMATE (CALCULATED) > 59 mL/min/; GLUCOSE 98 mg/dL (70-99); LIPASE 41 U/L (1.0-51.0); POTASSIUM 4.3 MEQ/L (3.7-5.4); SODIUM 122 MEQ/L (136-147); TOTAL BILIRUBIN 0.4 MG/DL (0.0-1.0); TOTAL PROTEIN 6.8 G/DL (6.4-8.3); UREA NITROGEN (BUN) 12 mg/dL (9-23)
[2017-11-29 13:38] LABS: APPEARANCE SL.HAZY ((CLEAR)); BILIRUBIN NEGATIVE; BLOOD NEGATIVE; COLOR YELLOW ((YELLOW)); GLUCOSE (STRIP) NEGATIVE; KETONES NEGATIVE; LEUKOCYTES SMALL; NITRITE POSITIVE; PROTEIN (STRIP) NEGATIVE; SPECIFIC GRAVITY 1.004 (1.000-1.030); UROBILINOGEN 0.2 MG/DL (0.2-1.0)
[2017-11-29 13:57] LABS: BACTERIA 3+ /HPF; MUCUS NONE SEEN /LPF; RED BLOOD CELLS 0-5 /HPF (0-5); UCUL ADDED? YES
[2017-11-29 13:58] LABS: EPITHELIAL CELLS RARE /HPF
[2017-11-29] MEDS ORDERED: ABILIFY10 MG PO (15:03)
[2017-11-29] MEDS ORDERED: VICKS VAPORUB O50 GM TP (15:04)
[2017-11-29] MEDS ORDERED: CALCIUM + D SO1 EACH PO (15:11)
[2017-11-29] MEDS ORDERED: CLOTRIMAZOLE15 GM TP (15:12)
[2017-11-29] MEDS ORDERED: VOLTAREN 1% GE100 GM TP (15:13)
[2017-11-29] MEDS ORDERED: GLUCOTROL XL2.5 MG PO (15:14)
[2017-11-29] MEDS ORDERED: VENTOLIN HFA18 GM IH (15:16)
[2017-11-29] MEDS ORDERED: SYNTHROID88 MCG PO (15:16)
[2017-11-29] MEDS ORDERED: MULTIVITAMIN1 EAC2 PO (15:17)
[2017-11-29] MEDS ORDERED: GLUCOPHAGE1000 MG PO (15:17)
[2017-11-29] MEDS ORDERED: LAMICTAL100 MG PO (15:19)
[2017-11-29] MEDS ORDERED: ACETAMINOPHEN325 M1 PO (15:20)
[2017-11-29] MEDS ORDERED: PRILOSEC20 MG PO (15:22)
[2017-11-29] MEDS ORDERED: LEXAPRO20 MG PO (15:22)
[2017-11-29] MEDS ORDERED: ZESTORETIC 20-1 EAC2 PO (15:22)
[2017-11-29] MEDS ORDERED: SEROQUEL400 MG PO (15:23)
[2017-11-29] MEDS ORDERED: COLACE100 MG PO (15:24)
[2017-11-29 19:53] VITALS: BP 164/71
[2017-11-29 23:10] VITALS: BP 142/68
[2017-11-30 03:00] VITALS: BP 138/79
[2017-11-30 06:47] LABS: CHLORIDE 89 MEQ/L (99-109); CREATININE 0.6 MG/DL (0.6-1.3); GFR ESTIMATE (CALCULATED) > 59 mL/min/; GLUCOSE 110 mg/dL (70-99); POTASSIUM 3.5 MEQ/L (3.7-5.4); SODIUM 128 MEQ/L (136-147); UREA NITROGEN (BUN) 9 mg/dL (9-23)
[2017-11-30 06:53] VITALS: BP 152/69
[2017-11-30 10:53] VITALS: BP 138/76
[2017-11-30 15:37] VITALS: BP 146/67
[2017-11-30 18:48] VITALS: BP 131/74
[2017-11-30 23:05] VITALS: BP 110/52
[2017-12-01 03:35] VITALS: BP 117/66
[2017-12-01 07:36] VITALS: BP 155/91
[2017-12-01 15:47] LABS: CHLORIDE 91 MEQ/L (99-109); CREATININE 0.7 MG/DL (0.6-1.3); GFR ESTIMATE (CALCULATED) > 59 mL/min/; GLUCOSE 127 mg/dL (70-99); POTASSIUM 3.8 MEQ/L (3.7-5.4); SODIUM 129 MEQ/L (136-147); UREA NITROGEN (BUN) 10 mg/dL (9-23)
[2017-12-01 15:53] VITALS: BP 158/90
[2017-12-01 23:35] VITALS: BP 112/57
[2017-12-02 06:23] LABS: CHLORIDE 89 MEQ/L (99-109); GFR ESTIMATE (CALCULATED) 57 mL/min/; GLUCOSE 126 mg/dL (70-99); POTASSIUM 4.4 MEQ/L (3.7-5.4); SODIUM 128 MEQ/L (136-147); UREA NITROGEN (BUN) 14 mg/dL (9-23)
[2017-12-02 07:23] VITALS: BP 167/77
[2017-12-02 15:46] VITALS: BP 150/74
[2017-12-02 23:28] VITALS: BP 113/63
[2017-12-03 07:08] LABS: CHLORIDE 89 MEQ/L (99-109); CREATININE 1.3 MG/DL (0.6-1.3); GFR ESTIMATE (CALCULATED) 42 mL/min/; GLUCOSE 105 mg/dL (70-99); POTASSIUM 4.1 MEQ/L (3.7-5.4); SODIUM 126 MEQ/L (136-147); UREA NITROGEN (BUN) 20 mg/dL (9-23)
[2017-12-03 08:40] VITALS: BP 144/63
[2017-12-03 11:11] LABS: THYROTROPIN (TSH) 1.1 MIU/L (0.4-5.5)
[2017-12-03 16:17] VITALS: BP 130/68
[2017-12-04 00:15] VITALS: BP 138/78
[2017-12-04 06:09] LABS: BASOPHIL (%) 0.3 % (0-1); EOSINOPHIL (%) 0.4 % (0-5); HEMATOCRIT 32.9 % (36.0-46.0); HEMOGLOBIN 10.7 G/DL (11.9-15.5); IMMATURE GRANULOCYTE (%) 0.3 % (0.0-0.7); LYMPHOCYTE (%) 22.1 % (15-42); LYMPHOCYTE COUNT 1.5 K/uL (1.0-2.8); MCHC 32.5 G/DL (30.0-36.0); MCV 82.9 FL (83-99); MONOCYTE (%) 6.8 % (3-12); MONOCYTE COUNT 0.5 K/uL (0-0.8); NEUTROPHIL (%) 70.1 % (45-76); NEUTROPHIL COUNT 4.8 K/uL (1.8-6.4); RBC DIS.WIDTH-CV 14.7 % (11.8-14.6); RBC DIS.WIDTH-SD 44.6 % (39-53); RED BLOOD COUNT 3.97 M/uL (3.80-5.20); WHITE BLOOD COUNT 6.8 K/uL (4.1-10.2)
[2017-12-04 06:21] LABS: PLATELET COUNT 503 K/uL (156-360)
[2017-12-04 06:46] LABS: ALBUMIN 3.8 G/DL (3.2-4.8); ALKALINE PHOSPHATASE 51 IU/L (3-129); ALT (GPT) 22 IU/L (3-49); AST (GOT) 31 IU/L (2-34); CHLORIDE 92 MEQ/L (99-109); CREATININE 0.7 MG/DL (0.6-1.3); GFR ESTIMATE (CALCULATED) > 59 mL/min/; GLUCOSE 113 mg/dL (70-99); MAGNESIUM 1.2 mg/dl (1.3-2.7); POTASSIUM 3.8 MEQ/L (3.7-5.4); SODIUM 130 MEQ/L (136-147); TOTAL BILIRUBIN 0.5 MG/DL (0.0-1.0); TOTAL PROTEIN 6.6 G/DL (6.4-8.3); UREA NITROGEN (BUN) 14 mg/dL (9-23)
[2017-12-04 08:01] VITALS: BP 158/70
[2017-12-04 12:24] LABS: HEPATITIS C ANTIBODY Nonreactive
[2017-12-04 16:26] VITALS: BP 183/80
== END 2017-12-05 09:45 | DRG 644 ==
LOC: EME 09:12 → 2EAST 16:23 → EDOF 16:23 → ENRESERV 16:43 → 2EAST 19:08
PROVIDERS: Emergency Medicine; Internal Medicine; Internal Medicine Nephrology
DX: E22.2 Syndrome of inappropriate secretion of antidiuretic hormone (principal); R45.851 Suicidal ideations; N17.8 Other acute kidney failure; F25.9 Schizoaffective disorder, unspecified; E03.9 Hypothyroidism, unspecified; E66.9 Obesity, unspecified; R45.850 Homicidal ideations; E83.42 Hypomagnesemia; I11.9 Hypertensive heart disease without heart failure; K21.9 Gastro-esophageal reflux disease without esophagitis; K59.00 Constipation, unspecified; N14.2 Nephropathy induced by unspecified drug, medicament or biological substance; N32.81 Overactive bladder; J44.9 Chronic obstructive pulmonary disease, unspecified; B96.20 Unspecified Escherichia coli [E. coli] as the cause of diseases classified elsewhere; N14.1 Nephropathy induced by other drugs, medicaments and biological substances; T50.8X5A Adverse effect of diagnostic agents, initial encounter; Y92.230 Patient room in hospital as the place of occurrence of the external cause; N32.89 Other specified disorders of bladder; T46.4X5A Adverse effect of angiotensin-converting-enzyme inhibitors, initial encounter; T50.2X5A Adverse effect of carbonic-anhydrase inhibitors, benzothiadiazides and other diuretics, initial encounter; T43.225A Adverse effect of selective serotonin reuptake inhibitors, initial encounter; R45.1 Restlessness and agitation; Z16.12 Extended spectrum beta lactamase (ESBL) resistance; Z68.35 Body mass index [BMI] 35.0-35.9, adult; Z78.1 Physical restraint status; Z87.891 Personal history of nicotine dependence; Z79.84 Long term (current) use of oral hypoglycemic drugs; Z91.14 Patient's other noncompliance with medication regimen; Z88.5 Allergy status to narcotic agent; Z88.2 Allergy status to sulfonamides; Z82.49 Family history of ischemic heart disease and other diseases of the circulatory system; Z80.3 Family history of malignant neoplasm of breast; Z80.0 Family history of malignant neoplasm of digestive organs
CPT/HCPCS: 74177; 80048; 80048 91; 80053; 81003; 82533 91; 82948; 83605; 83690; 83735; 83935; 84300; 84439; 84443; 84550; 85025; 86803; 87040; 87077; 87086; 87186; 93005; 99202; 99281; 99285; J0696; J1630; J1644; J2060; J2405; J3486; J7030

== ENCOUNTER 2017-12-05 09:29 | Inpatient (IN) | payer OTHER ==
[~2017-12-05 09:29] MED LIST changes: +ABILIFY10 MG PO; +CALCIUM + D SO1 EACH PO; +CLOTRIMAZOLE15 GM TP; +MULTIVITAMIN1 EAC2 PO; +ZESTORETIC 20-1 EAC2 PO
[2017-12-05 15:13] VITALS: BP 117/72
[2017-12-06 07:38] VITALS: BP 128/72
[2017-12-06 09:49] LABS: CHLORIDE 94 MEQ/L (99-109); POTASSIUM 3.4 MEQ/L (3.7-5.4); SODIUM 131 MEQ/L (136-147)
[2017-12-06 15:13] VITALS: BP 155/70
[2017-12-07 08:06] VITALS: BP 144/70
[2017-12-07 16:03] VITALS: BP 165/78
[2017-12-07 18:26] VITALS: BP 147/67
[2017-12-08 07:58] VITALS: BP 190/82
[2017-12-08 08:58] LABS: CHLORIDE 94 MEQ/L (99-109); GFR ESTIMATE (CALCULATED) 42 mL/min/; GLUCOSE 124 mg/dL (70-99); POTASSIUM 3.8 MEQ/L (3.7-5.4); SODIUM 133 MEQ/L (136-147)
[2017-12-08 09:00] LABS: CREATININE 1.3 MG/DL (0.6-1.3); UREA NITROGEN (BUN) 30 mg/dL (9-23)
[2017-12-08 16:11] VITALS: BP 156/69
[2017-12-09 07:49] VITALS: BP 137/75
[2017-12-09 16:16] VITALS: BP 119/56
[2017-12-10 07:42] LABS: BASOPHIL (%) 0.6 % (0-1); EOSINOPHIL (%) 0.3 % (0-5); HEMATOCRIT 31.6 % (36.0-46.0); HEMOGLOBIN 10.4 G/DL (11.9-15.5); IMMATURE GRANULOCYTE (%) 0.3 % (0.0-0.7); LYMPHOCYTE (%) 20.8 % (15-42); LYMPHOCYTE COUNT 1.4 K/uL (1.0-2.8); MCH 27.6 PG (29.0-34.0); MCHC 32.9 G/DL (30.0-36.0); MCV 83.8 FL (83-99); MONOCYTE (%) 7.6 % (3-12); MONOCYTE COUNT 0.5 K/uL (0-0.8); NEUTROPHIL (%) 70.4 % (45-76); NEUTROPHIL COUNT 4.6 K/uL (1.8-6.4); PLATELET COUNT 475 K/uL (156-360); RBC DIS.WIDTH-CV 15.5 % (11.8-14.6); RBC DIS.WIDTH-SD 47.1 % (39-53); RED BLOOD COUNT 3.77 M/uL (3.80-5.20); WHITE BLOOD COUNT 6.5 K/uL (4.1-10.2)
[2017-12-10 08:02] LABS: ALKALINE PHOSPHATASE 64 IU/L (3-129); ALT (GPT) 24 IU/L (3-49); AST (GOT) 21 IU/L (2-34); CHLORIDE 98 MEQ/L (99-109); GFR ESTIMATE (CALCULATED) 12 mL/min/; GLUCOSE 110 mg/dL (70-99); POTASSIUM 4.2 MEQ/L (3.7-5.4); SODIUM 136 MEQ/L (136-147); TOTAL BILIRUBIN 0.4 MG/DL (0.0-1.0); TOTAL PROTEIN 6.4 G/DL (6.4-8.3)
[2017-12-10 08:07] LABS: UREA NITROGEN (BUN) 60 mg/dL (9-23)
[2017-12-10 09:48] VITALS: BP 141/66
[2017-12-10] MEDS ORDERED: ARIPIPRAZOLE10 MG PO (15:30)
[2017-12-10 16:40] VITALS: BP 123/49
== END 2017-12-10 16:51 | DRG 885 ==
LOC: ENRESERV 09:29 → 1WEST 09:29 → CANRESERV 12-10 14:30 → ENRESERV 12-10 14:30 → 1WEST 12-10 16:51
PROVIDERS: Psychiatry & Neurology Psychiatry
DX: F25.9 Schizoaffective disorder, unspecified (principal); N17.9 Acute kidney failure, unspecified; E86.0 Dehydration; T39.395A Adverse effect of other nonsteroidal anti-inflammatory drugs [NSAID], initial encounter; E87.1 Hypo-osmolality and hyponatremia; E11.9 Type 2 diabetes mellitus without complications; I10 Essential (primary) hypertension; J44.9 Chronic obstructive pulmonary disease, unspecified; Z87.440 Personal history of urinary (tract) infections; Z87.891 Personal history of nicotine dependence; Z79.84 Long term (current) use of oral hypoglycemic drugs
CPT/HCPCS: 76770; 80048; 80051; 80053; 81003; 82550; 85025; 89190; 94640; 94640 76; 99202

== ENCOUNTER 2017-12-10 13:34 | Inpatient (IN) | payer OTHER ==
[~2017-12-10] VITALS: Ht 152.4 cm; Wt 81.9 kg
[2017-12-10] MEDS ORDERED: ARIPIPRAZOLE10 MG PO (15:30)
[2017-12-10 17:34] VITALS: BP 136/72
[2017-12-10 19:45] LABS: TROP-I INTERPRETATION NEGATIVE; TROPONIN-I 0.04 ng/mL (0.0-0.30)
[2017-12-10 19:57] VITALS: BP 187/78
[2017-12-11] VITALS (7 sets, daily range): BP systolic 133–172; BP diastolic 62–76
[2017-12-11 01:03] LABS: TROP-I INTERPRETATION NEGATIVE; TROPONIN-I 0.04 ng/mL (0.0-0.30)
[2017-12-11 06:29] LABS: TROP-I INTERPRETATION NEGATIVE; TROPONIN-I 0.03 ng/mL (0.0-0.30)
[2017-12-11 06:41] LABS: TROP-I INTERPRETATION NEGATIVE; TROPONIN-I 0.03 ng/mL (0.0-0.30)
[2017-12-11 06:43] LABS: CHLORIDE 101 MEQ/L (99-109); CREATINE KINASE 707 IU/L (1-294); GLUCOSE 85 mg/dL (70-99); HDL CHOLESTEROL 30 MG/DL (Desirable>=50); LDL CHOLESTEROL 88 mg/dL (Desirable<100); NON-HDL CHOLESTEROL 130 mg/dL (Desirable<160); SODIUM 136 MEQ/L (136-147); TOTAL CHOLESTEROL 160 mg/dL (Desirable<200); TRIGLYCERIDES 209 MG/DL (Normal: <150); UREA NITROGEN (BUN) 55 mg/dL (9-23)
[2017-12-11 06:44] LABS: CREATININE 2.7 MG/DL (0.6-1.3); GFR ESTIMATE (CALCULATED) 18 mL/min/
[2017-12-11 09:56] LABS: HEMOGLOBIN A1c (GLYCOHEMOGLOB) 5.7 % (Below 5.7)
[2017-12-11 13:08] LABS: TROP-I INTERPRETATION NEGATIVE; TROPONIN-I 0.03 ng/mL (0.0-0.30)
[2017-12-11 19:33] LABS: TROP-I INTERPRETATION NEGATIVE; TROPONIN-I 0.03 ng/mL (0.0-0.30)
[2017-12-12 01:17] LABS: TROP-I INTERPRETATION NEGATIVE; TROPONIN-I 0.03 ng/mL (0.0-0.30)
[2017-12-12 04:27] VITALS: BP 187/81
[2017-12-12 05:43] LABS: APPEARANCE CLEAR ((CLEAR)); BILIRUBIN NEGATIVE; BLOOD SMALL; COLOR YELLOW ((YELLOW)); GLUCOSE (STRIP) NEGATIVE; KETONES NEGATIVE; LEUKOCYTES TRACE; NITRITE NEGATIVE; PROTEIN (STRIP) NEGATIVE; SPECIFIC GRAVITY 1.013 (1.000-1.030); UROBILINOGEN 0.2 MG/DL (0.2-1.0)
[2017-12-12 06:05] LABS: BACTERIA RARE /HPF; EPITHELIAL CELLS RARE /HPF; MUCUS TRACE /LPF; RED BLOOD CELLS 0-5 /HPF (0-5); WHITE BLOOD CELLS 0-5 /HPF (0-5)
[2017-12-12 06:37] LABS: BASOPHIL (%) 0.5 % (0-1); EOSINOPHIL COUNT 0.1 K/uL (0-0.3); HEMATOCRIT 31.2 % (36.0-46.0); HEMOGLOBIN 9.8 G/DL (11.9-15.5); IMMATURE GRANULOCYTE (%) 0.2 % (0.0-0.7); LYMPHOCYTE (%) 30.2 % (15-42); LYMPHOCYTE COUNT 1.7 K/uL (1.0-2.8); MCH 26.8 PG (29.0-34.0); MCHC 31.4 G/DL (30.0-36.0); MCV 85.5 FL (83-99); MONOCYTE (%) 6.2 % (3-12); MONOCYTE COUNT 0.4 K/uL (0-0.8); NEUTROPHIL (%) 61.9 % (45-76); NEUTROPHIL COUNT 3.6 K/uL (1.8-6.4); PLATELET COUNT 395 K/uL (156-360); RBC DIS.WIDTH-CV 15.2 % (11.8-14.6); RBC DIS.WIDTH-SD 47.8 % (39-53); RED BLOOD COUNT 3.65 M/uL (3.80-5.20); WHITE BLOOD COUNT 5.8 K/uL (4.1-10.2)
[2017-12-12 06:56] LABS: TROP-I INTERPRETATION NEGATIVE; TROPONIN-I 0.02 ng/mL (0.0-0.30)
[2017-12-12 07:06] LABS: CHLORIDE 101 MEQ/L (99-109); CREATINE KINASE 613 IU/L (1-294); GFR ESTIMATE (CALCULATED) 57 mL/min/; GLUCOSE 105 mg/dL (70-99); MAGNESIUM 1.4 mg/dl (1.3-2.7); PHOSPHORUS 2.6 mg/dL (2.5-4.9); POTASSIUM 3.8 MEQ/L (3.7-5.4); SODIUM 135 MEQ/L (136-147); UREA NITROGEN (BUN) 37 mg/dL (9-23)
[2017-12-12 09:31] VITALS: BP 143/67
[2017-12-12 11:09] LABS: EOSINOPHILS,URINE NONE SEEN
[2017-12-12 11:47] VITALS: BP 146/86
[2017-12-12 14:03] LABS: TROP-I INTERPRETATION NEGATIVE; TROPONIN-I 0.02 ng/mL (0.0-0.30)
[2017-12-12 16:49] VITALS: BP 149/71
[2017-12-12 19:23] LABS: TROP-I INTERPRETATION NEGATIVE; TROPONIN-I 0.03 ng/mL (0.0-0.30)
[2017-12-12 19:39] VITALS: BP 137/66
[2017-12-12 23:07] VITALS: BP 190/83
[2017-12-13 01:11] LABS: TROP-I INTERPRETATION NEGATIVE; TROPONIN-I 0.02 ng/mL (0.0-0.30)
[2017-12-13 04:10] VITALS: BP 192/94
[2017-12-13 07:38] LABS: TROP-I INTERPRETATION NEGATIVE; TROPONIN-I 0.02 ng/mL (0.0-0.30)
[2017-12-13 08:15] VITALS: BP 168/90
[2017-12-13 08:50] VITALS: BP 190/83
[2017-12-13 09:15] VITALS: BP 168/90
[2017-12-13] MEDS ORDERED: OLANZAPINE5 MG PO ×2 (11:06)
[2017-12-13] MEDS ORDERED: ESCITALOPRAM OX10 MG PO (11:07)
[2017-12-13] MEDS ORDERED: LOPRESSOR50 MG PO (11:08)
[2017-12-13] MEDS ORDERED: NORVASC10 MG PO (11:10)
[2017-12-13 11:15] VITALS: BP 124/68
[2017-12-13] MEDS ORDERED: PROVENTIL HFA6.7 GM IH (13:59)
[2017-12-13] MEDS ORDERED: GLIPIZIDE ER2.5 MG PO (14:00)
[2017-12-13] MEDS ORDERED: GLUCOPHAGE500 MG PO (14:00)
== END 2017-12-13 12:46 | DRG 683 ==
LOC: 3EAST 13:34 → ENRESERV 14:11 → 3EAST 17:26
PROVIDERS: Internal Medicine; Internal Medicine Nephrology
DX: N17.9 Acute kidney failure, unspecified (principal); E86.0 Dehydration; T39.315A Adverse effect of propionic acid derivatives, initial encounter; M62.82 Rhabdomyolysis; E22.2 Syndrome of inappropriate secretion of antidiuretic hormone; F25.9 Schizoaffective disorder, unspecified; I10 Essential (primary) hypertension; J44.9 Chronic obstructive pulmonary disease, unspecified; E11.9 Type 2 diabetes mellitus without complications; E66.9 Obesity, unspecified; E03.9 Hypothyroidism, unspecified; Z88.2 Allergy status to sulfonamides
CPT/HCPCS: 80048; 80061; 81003; 82550 91; 82948; 83036; 83605; 83735; 84100; 84484; 85025; 87040; 89190; 93005; 94799; J1335; J1644; J7030; J7050

== ENCOUNTER 2017-12-13 10:08 | Inpatient (IN) | payer OTHER ==
[~2017-12-13 10:08] MED LIST changes: +ARIPIPRAZOLE10 MG PO
[2017-12-13] MEDS ORDERED: OLANZAPINE5 MG PO ×2 (11:06)
[2017-12-13] MEDS ORDERED: ESCITALOPRAM OX10 MG PO (11:07)
[2017-12-13] MEDS ORDERED: LOPRESSOR50 MG PO (11:08)
[2017-12-13] MEDS ORDERED: NORVASC10 MG PO (11:10)
[2017-12-13 12:57] VITALS: BP 150/68
[2017-12-13 13:05] VITALS: BP 150/68
[2017-12-13] MEDS ORDERED: PROVENTIL HFA6.7 GM IH (13:59)
[2017-12-13] MEDS ORDERED: GLUCOPHAGE500 MG PO (14:00)
[2017-12-13] MEDS ORDERED: GLIPIZIDE ER2.5 MG PO (14:00)
[2017-12-13 16:38] VITALS: BP 184/75
[2017-12-14 07:53] VITALS: BP 171/80
[2017-12-14 12:06] VITALS: BP 151/74
[2017-12-14 16:39] VITALS: BP 160/77
[2017-12-15 08:07] VITALS: BP 160/66
[2017-12-15] MEDS ORDERED: ESCITALOPRAM OX10 MG PO (11:11)
[2017-12-15] MEDS ORDERED: OLANZAPINE5 MG PO (11:11)
[2017-12-15] MEDS ORDERED: SEROQUEL400 MG PO (11:12)
== END 2017-12-15 13:11 | disposition home or self-care (01) | DRG 885 ==
LOC: 1WEST 10:08
DX: F25.0 Schizoaffective disorder, bipolar type (principal); E87.1 Hypo-osmolality and hyponatremia; F05 Delirium due to known physiological condition; E03.9 Hypothyroidism, unspecified; K59.00 Constipation, unspecified; H53.8 Other visual disturbances; F22 Delusional disorders; Z79.84 Long term (current) use of oral hypoglycemic drugs; E11.9 Type 2 diabetes mellitus without complications
CPT/HCPCS: 94640; 94760; 99202

== ENCOUNTER 2018-02-01 10:08 | Emergency (ER) | payer OTHER ==
[~2018-02-01] VITALS: Ht 152.4 cm; Wt 76.4 kg
[~2018-02-01 10:08] MED LIST changes: +GLUCOPHAGE500 MG PO; +LOPRESSOR50 MG PO; +NORVASC10 MG PO; +OLANZAPINE5 MG PO
[2018-02-01 10:58] LABS: BASOPHIL (%) 0.7 % (0-1); BASOPHIL COUNT 0.1 K/uL (0-0.1); EOSINOPHIL (%) 1.8 % (0-5); EOSINOPHIL COUNT 0.1 K/uL (0-0.3); HEMATOCRIT 33.6 % (36.0-46.0); IMMATURE GRANULOCYTE (%) 0.3 % (0.0-0.7); LYMPHOCYTE (%) 27.1 % (15-42); LYMPHOCYTE COUNT 2.1 K/uL (1.0-2.8); MCH 27.4 PG (29.0-34.0); MCHC 32.7 G/DL (30.0-36.0); MCV 83.6 FL (83-99); MONOCYTE (%) 6.8 % (3-12); MONOCYTE COUNT 0.5 K/uL (0-0.8); NEUTROPHIL (%) 63.3 % (45-76); NEUTROPHIL COUNT 4.8 K/uL (1.8-6.4); PLATELET COUNT 340 K/uL (156-360); RBC DIS.WIDTH-CV 13.5 % (11.8-14.6); RBC DIS.WIDTH-SD 41.7 % (39-53); RED BLOOD COUNT 4.02 M/uL (3.80-5.20); WHITE BLOOD COUNT 7.6 K/uL (4.1-10.2)
[2018-02-01 11:08] LABS: CHLORIDE 95 mEq/L (99-109); POTASSIUM 4.3 mEq/L (3.7-5.4); SODIUM 133 mEq/L (136-147)
[2018-02-01 11:09] LABS: GLUCOSE 95 mg/dL (70-99)
[2018-02-01 11:13] LABS: CREATININE 0.7 mg/dL (0.6-1.3); GFR ESTIMATE (CALCULATED) > 59 mL/min/
[2018-02-01 11:14] LABS: UREA NITROGEN (BUN) 10 mg/dL (9-23)
[2018-02-01 11:37] LABS: APPEARANCE SL.HAZY ((CLEAR)); BILIRUBIN NEGATIVE; BLOOD NEGATIVE; COLOR YELLOW ((YELLOW)); GLUCOSE (STRIP) NEGATIVE; KETONES NEGATIVE; LEUKOCYTES LARGE; NITRITE NEGATIVE; PROTEIN (STRIP) NEGATIVE; SPECIFIC GRAVITY 1.011 (1.000-1.030); UROBILINOGEN 0.2 MG/DL (0.2-1.0)
[2018-02-01 11:48] LABS: BACTERIA RARE /HPF; EPITHELIAL CELLS 1+ /HPF; MUCUS TRACE /LPF; RED BLOOD CELLS 0-5 /HPF (0-5); UCUL ADDED? YES; WHITE BLOOD CELLS 20-30 /HPF (0-5)
[2018-02-01] MEDS ORDERED: CIPRO500 MG PO (11:58)
[2018-02-01 13:41] VITALS: BP 121/80
[2018-02-03] MEDS ORDERED: ARIPIPRAZOLE15 MG PO (16:46)
[2018-02-03] MEDS ORDERED: LORAZEPAM0.5 MG PO (16:48)
[2018-02-03] MEDS ORDERED: QUETIAPINE FUM300 MG PO (16:49)
== END 2018-02-01 13:50 | disposition home or self-care (01) ==
LOC: EME 10:08
PROVIDERS: Emergency Medicine
DX: N39.0 Urinary tract infection, site not specified (principal); E78.5 Hyperlipidemia, unspecified; F41.9 Anxiety disorder, unspecified; I11.0 Hypertensive heart disease with heart failure; I50.9 Heart failure, unspecified; I25.2 Old myocardial infarction; J43.9 Emphysema, unspecified; E11.9 Type 2 diabetes mellitus without complications; Z79.84 Long term (current) use of oral hypoglycemic drugs; J45.909 Unspecified asthma, uncomplicated; K21.9 Gastro-esophageal reflux disease without esophagitis; Z85.3 Personal history of malignant neoplasm of breast; E03.9 Hypothyroidism, unspecified; Z85.038 Personal history of other malignant neoplasm of large intestine; Z88.2 Allergy status to sulfonamides; Z87.891 Personal history of nicotine dependence
CPT/HCPCS: 80048; 81003; 85025; 87077; 87086; 87186; 99281; 99284